=== PATIENT | female | born 1975 | race Hispanic/Latino ===

== ENCOUNTER 2017-06-17 09:32 | Emergency (ER) | payer OTHER ==
[2017-06-17 09:39] VITALS: O2SAT 98
[2017-06-17 09:40] VITALS: BP 113/63; PULSE 75; RESP 20; TEMP 98.1
--- NOTE | 2017-06-17 11:19 | ED PDOC ---
HPI: Trauma/Fall - HPI Time Seen by Provider: 06/17/17 10:14 Chief Complaint (Nursing): Back Pain Chief Complaint (Provider): trauma History Per: Patient History/Exam Limitations: no limitations Injury Occurred (Timing): Just Before Arrival Additional Complaint(s): Jaja Montoya is a 41 year old female, with no previous medical history, who presents to the ED with complaints of back pain and left shoulder pain after being struck by a falling traffic [place] on [address] prior to arrival. Patient is unsure if the post struck her head and is unsure if she is having a headache. She denies any loss of consciousness, nausea, vomiting, changes in speech, changes in gait, numbness or tingling. PMD: none provided Past Medical History Reviewed: Historical Data, Nursing Documentation, Vital Signs Vital Signs: Last Vital Signs Temp 98.1 F 06/17/17 09:39 Pulse 75 06/17/17 09:39 Resp 20 06/17/17 09:39 BP 113/63 06/17/17 09:39 Pulse Ox 98 06/17/17 09:39 - Medical History PMH: Hypothyroidism - Surgical History Surgical History: No Surg Hx - Family History Family History: States: Unknown Family Hx - Home Medications Home Medications: Ambulatory Orders Medication Instructions Recorded Cyclobenzaprine [Cyclobenzaprine 10 mg PO TID PRN #15 tab 06/17/17 HCl] Naproxen [Naprosyn] 500 mg PO BID PRN #15 tablet 06/17/17 - Allergies Allergies/Adverse Reactions: Allergies Allergy/AdvReac Type Severity Reaction Status Date / Time No Known Allergies Allergy Verified 06/17/17 09:39 Review of Systems ROS Statement: Except As Marked, All Systems Reviewed And Found Negative Cardiovascular: Negative for: Chest Pain Respiratory: Negative for: Shortness of Breath Gastrointestinal: Negative for: Nausea, Vomiting Musculoskeletal: Positive for: Shoulder Pain (left), Back Pain Neurological: Negative for: Numbness, Other (tingling ) Physical Exam - Reviewed Nursing Documentation Reviewed: Yes Vital Signs Reviewed: Yes - Physical Exam Appears: Positive for: Well, Non-toxic, No Acute Distress Head Exam: Positive for: ATRAUMATIC, NORMAL INSPECTION, NORMOCEPHALIC Skin: Positive for: Normal Color, Warm, Dry Eye Exam: Positive for: Normal appearance, EOMI, PERRL. Negative for: Nystagmus ENT: Positive for: Normal ENT Inspection Neck: Positive for: Normal, Painless ROM Cardiovascular/Chest: Positive for: Regular Rate, Rhythm Respiratory: Positive for: CNT, Normal Breath Sounds Gastrointestinal/Abdominal: Positive for: Normal Exam, Bowel Sounds, Soft Back: Positive for: Normal Inspection Extremity: Positive for: Normal ROM (in left shoulder and right elbow ), Tenderness (minimal to the posterior inferior scalp. tenderness to the posterior left shoulder ), Other (abrassion to the right elbow but no ecchymosis noted in any extremity). Negative for: Deformity Neurologic/Psych: Positive for: Alert, pharmacy technologist II-XII (intact), Oriented, Gait ( steady. patient ambulating throughout ED with no distress). Negative for: Motor /Sensory Deficits - ECG O2 Sat by Pulse Oximetry: 98 (RA) Pulse Ox Interpretation: Normal Medical Decision Making Medical Decision Making: Initial Impression: Musculoskeletal Initial Plan: * CT head w/o contrast * X-ray right elbow * x-ray left shoulder * x-ray left scapula * reevaluation Time: 11:25 XR Left Shoulder FINDINGS: BONES: Normal. No fracture. JOINTS: Normal. Glenohumeral and acromioclavicular joints preserved. No osteoarthritis. SOFT TISSUES: Normal. OTHER FINDINGS: None. IMPRESSION: Normal radiographs of the left shoulder. XR Elbow FINDINGS: BONES: Normal. No fracture. JOINTS: Normal. No osteoarthritis. SOFT TISSUES: Normal. JOINT EFFUSION: None. OTHER FINDINGS: None. IMPRESSION: Unremarkable radiographs of the right elbow. Time: 12:50 CT HEAD FINDINGS: HEMORRHAGE: No intracranial hemorrhage. BRAIN: Normal cat-white matter differentiation and density are appreciated throughout the cerebrum cerebellum and brainstem. There is no mass effect. There is no suspicious extra-axial fluid collection in the midline brain and appears diffusely unremarkable. VENTRICLES: Unremarkable. No hydrocephalus. CALVARIUM: No fracture or suspicious lytic or blastic change is encountered. Nonaggressive lucency is identified at the clivus and medial left sphenoid bone. PARANASAL SINUSES: Unremarkable as visualized. No significant inflammatory changes. MASTOID AIR CELLS: Unremarkable as visualized. No inflammatory changes. OTHER FINDINGS: None. IMPRESSION: Unremarkable unenhanced head CT. No fracture or other posttraumatic change are identified including intracranial hemorrhage. Incidental note is made of nonaggressive bony lucencies of the left-sided clivus and medial left sphenoid bone as well. Scribe Attestation: Documented by Kristen Christy, acting as a scribe for Dr. Kristen Liu. Provider Scribe Attestation: All medical record entries made by the Scribe were at my direction and personally dictated by me. I have reviewed the chart and agree that the record accurately reflects my personal performance of the history, physical exam, medical decision making, and the department course for this patient. I have also personally directed, reviewed, and agree with the discharge instructions and disposition. Disposition - Clinical Impression Clinical Impression: Back contusion, Elbow abrasion - Disposition Disposition: Routine/Home Disposition Time: 13:15 Condition: STABLE Additional Instructions: FOLLOW-UP WITH YOUR PMD WITHIN 2 DAYS FOR REEVALUATION. Prescriptions: Cyclobenzaprine [Cyclobenzaprine HCl] 10 mg PO TID PRN #15 tab PRN Reason: Pain Naproxen [Naprosyn] 500 mg PO BID PRN #15 tablet PRN Reason: Pain, Moderate (4-7) Instructions: Contusion in Adults (ED), Abrasion (ED) Forms: [employer] (Albanian)
--- NOTE | 2017-06-17 11:26 | RAD ---
PROCEDURE: Radiographs of the Left Shoulder HISTORY: Trauma COMPARISON: No prior. FINDINGS: BONES: Normal. No fracture. JOINTS: Normal. Glenohumeral and acromioclavicular joints preserved. No osteoarthritis. SOFT TISSUES: Normal. OTHER FINDINGS: None. IMPRESSION: Normal radiographs of the left shoulder.
--- NOTE | 2017-06-17 11:27 | RAD ---
PROCEDURE: Radiographs of the right elbow. HISTORY: Trauma COMPARISON: No prior. FINDINGS: BONES: Normal. No fracture. JOINTS: Normal. No osteoarthritis. SOFT TISSUES: Normal. JOINT EFFUSION: None. OTHER FINDINGS: None. IMPRESSION: Unremarkable radiographs of the right elbow.
--- NOTE | 2017-06-17 12:52 | CT ---
PROCEDURE: CT HEAD WITHOUT CONTRAST. HISTORY: ? Head injury COMPARISON: None available. TECHNIQUE: Axial computed tomography images were obtained through the head/brain without intravenous contrast. Radiation dose: Total exam DLP = 899.0 mGy-cm. This CT exam was performed using one or more of the following dose reduction techniques: Automated exposure control, adjustment of the mA and/or kV according to patient size, and/or use of iterative reconstruction technique. FINDINGS: HEMORRHAGE: No intracranial hemorrhage. BRAIN: Normal cat-white matter differentiation and density are appreciated throughout the cerebrum cerebellum and brainstem. There is no mass effect. There is no suspicious extra-axial fluid collection in the midline brain and appears diffusely unremarkable. VENTRICLES: Unremarkable. No hydrocephalus. CALVARIUM: No fracture or suspicious lytic or blastic change is encountered. Nonaggressive lucency is identified at the clivus and medial left sphenoid bone. PARANASAL SINUSES: Unremarkable as visualized. No significant inflammatory changes. MASTOID AIR CELLS: Unremarkable as visualized. No inflammatory changes. OTHER FINDINGS: None. IMPRESSION: Unremarkable unenhanced head CT. No fracture or other posttraumatic change are identified including intracranial hemorrhage. Incidental note is made of nonaggressive bony lucencies of the left-sided clivus and medial left sphenoid bone as well.
== END 2017-06-17 13:23 | disposition home or self-care (01) ==
LOC: H.ER 09:32 → EDSEX 09:32 → H.ER 13:23
DX: S09.90XA Unspecified injury of head, initial encounter (principal); S30.0XXA Contusion of lower back and pelvis, initial encounter; S50.311A Abrasion of right elbow, initial encounter; M25.512 Pain in left shoulder; W22.8XXA Striking against or struck by other objects, initial encounter; Y92.410 Unspecified street and highway as the place of occurrence of the external cause